=== PATIENT | male | born 1935 | race Caucasian/White ===

== ENCOUNTER 2020-04-20 11:13 | Day surgery (SDC) | payer MEDICARE, BC ==
[2020-04-15 12:58] LABS: BASOPHILS # (AUTO) 0.1 X10'3 (0-0.2); BASOPHILS % (AUTO) 1.1 % (0-1); EOSINOPHILS # (AUTO) 0.2 X10'3 (0-0.9); EOSINOPHILS % (AUTO) 4.2 % (0-6); HEMATOCRIT 44.2 % (42.0-52.0); HEMOGLOBIN 14.7 g/dl (14.0-17.9); LYMPHOCYTES # (AUTO) 2.6 X10'3 (1.1-4.8); LYMPHOCYTES % (AUTO) 43.2 % (21-51); MEAN CORPUSCULAR HEMOGLOBIN 30.9 PG (27.0-31.0); MEAN CORPUSCULAR HGB CONC 33.2 g/dL (33.0-36.5); MEAN CORPUSCULAR VOLUME 93.1 FL (78-98); MEAN PLATELET VOLUME 7.4 FL (7.4-10.4); MONOCYTES # (AUTO) 0.7 X10'3 (0-0.9); MONOCYTES % (AUTO) 11.7 % (2-12); NEUTROPHILS # (AUTO) 2.4 X10'3 (1.8-7.7); NEUTROPHILS % (AUTO) 39.8 % (42-75); PLATELET COUNT 199 X10'3 (140-440); RED BLOOD COUNT 4.75 X10'6 (4.70-6.10); RED CELL DISTRIBUTION WIDTH 13.8 % (11.5-14.5); WHITE BLOOD COUNT 5.9 X10'3 (4.5-11.0)
[2020-04-15 13:09] LABS: ALBUMIN 3.9 G/DL (3.4-5.0); ANION GAP 8 (8-16); BLOOD UREA NITROGEN 15 MG/DL (7-18); BUN/CREATININE RATIO 13.6 (5.4-32.0); CALCIUM 9.3 MG/DL (8.5-10.1); CHLORIDE 105 MMOL/L (99-107); GLUCOSE 92 MG/DL (70-104); SODIUM 142 MMOL/L (135-145); TOTAL CARBON DIOXIDE 29.1 MMOL/L (24-32); eGFR 64 ML/MIN
[2020-04-15 13:11] LABS: PARTIAL THROMBOPLASTIN TIME 27 SECONDS (22-32)
[~2020-04-20] VITALS: Ht 182.9 cm; Wt 107.0 kg
[2020-04-20] VITALS (10 sets, daily range): BP systolic 104–162; BP diastolic 66–86
[2020-04-20] MEDS ORDERED: normal saline 1,000 ML IV SCH (11:50)
[2020-04-20] MEDS ORDERED: LORazepam 0.5 MG tablet PO PRN (11:50)
[2020-04-20] MEDS ORDERED: LIDOcaine/PRILOcaine 5gm cream TP ONE (11:50)
[2020-04-20] MEDS ORDERED: diphenhydrAMINE 25mg capsule PO PRN (11:50)
[2020-04-20] MEDS ORDERED: iohexol 350MG/ML 100ml bottle IV ONE ×2 (12:34→13:39)
[2020-04-20] MEDS ORDERED: LIDOcaine 1% (10mg/ml)w/preservative injection 20ml MDV ONE (12:34)
[2020-04-20] MEDS ORDERED: fentaNYL/PF 50MCG/1 ML 2ML syringe ONE (12:35)
[2020-04-20] MEDS ORDERED: midazolam 2 mg/2 ml injection ONE ×2 (12:35→13:18)
[2020-04-20] MEDS ORDERED: ATOR20TA PO (12:49)
[2020-04-20] MEDS ORDERED: ASPI81TA52 PO (12:50)
[2020-04-20] MEDS ORDERED: CARV3.12 PO (12:50)
[2020-04-20] MEDS ORDERED: proCHLORperazine 10 MG/2 ml inj ONE (12:58)
[2020-04-20] MEDS ORDERED: heparin 1,000unit/ml 10ml vial 10 ML ONE (13:00)
[2020-04-20] MEDS ORDERED: nitroGLYCERIN-Tridil 50MG/D5W 250 ML IV ONE (13:00)
[2020-04-20] MEDS ORDERED: verapamil 2.5 mg/ml inj IV ONE (13:00)
[2020-04-20] MEDS ORDERED: ticagrelor 90mg tablet ONE (14:00)
[2020-04-20] MEDS ORDERED: proCHLORperazine 10 MG/2 ml inj IV PRN (14:35)
[2020-04-20] MEDS ORDERED: ondansetron/PF 4mg/2ml inj IV PRN (14:35)
[2020-04-20] MEDS ORDERED: normal saline 1000ml 1,000 ML IV SCH (14:35)
[2020-04-20] MEDS ORDERED: HYDROcodone/acetaminophen 10/325mg tab PO PRN (14:35)
[2020-04-20] MEDS ORDERED: HYDROcodone/acetaminophen 5mg/325mg tablet PO PRN (14:35)
[2020-04-20] MEDS ORDERED: OXAZEpam 15mg capsule PO PRN (14:35)
--- NOTE | 2020-04-20 16:15 | NUR ---
HEMATOMA DEVELOPING AT SITE VASCULAR BAND REPLACED 15CC OF AIR IN BAND, PRESSURE HELD ON HEMATOMA, PT ANURADHA WELL, DENIED DISCOMFORT.
--- NOTE | 2020-04-20 16:22 | NUR ---
VASCULAR BAND REMOVED, STERILE DRSG APPLIED 2X2 AND TEGADERM, TOPPED WITH FOLDED 4X4 AND COFLEX, PT UNDERSTANDS THAT TOP BY BE ADJUSTED AND OR REMOVED FOR COMFORT. TEGADERM TO BE REMOVED PRIOR TO SHOWER NO SOONER THAN 24 HOURS. PT STATES UNDERSTANDING. Addendum: 04/20/20 at 1729 by Rhonda Rubi RN above vascular band removal noted on wrong pt. to be disregarded
--- NOTE | 2020-04-20 18:00 | NUR ---
VASCULAR BAND REMOVED, HEMATOMA DECREASED FROM ORIGINAL SIZE, BRUISING NOTED, STERILE 2X2 AND TEGADERM APPLIED, TOPPED WITH FOLDED 4X4 AND COFLEX, PT AMBULATED IN [place], ANURADHA WELL DENIED DIZZINESS. RIGHT GROIN PROCEDURE SITE REMAINED STABLE.
== END 2020-04-20 18:30 | disposition home or self-care (01) ==
LOC: SSTAY O 11:13
PROVIDERS: ATTEND Internal Medicine Interventional Cardiology
DX: R94.39 Abnormal result of other cardiovascular function study (principal); I25.10 Atherosclerotic heart disease of native coronary artery without angina pectoris; I35.0 Nonrheumatic aortic (valve) stenosis; Z79.899 Other long term (current) drug therapy; Z98.890 Other specified postprocedural states; Z72.89 Other problems related to lifestyle; Z85.828 Personal history of other malignant neoplasm of skin; Z79.01 Long term (current) use of anticoagulants; Z82.49 Family history of ischemic heart disease and other diseases of the circulatory system
CPT/HCPCS: 36415; 80048; 85025; 85610; 85730; 93005; 93458; 99152; 99153; C1725; C1751; C1760; C1769; C1876; C1894; C9600; J0780; J1644; J2001; J2250; J3010; Q9967; A4620; A5120; A6258; J3490

== ENCOUNTER 2020-05-26 08:10 | Day surgery (SDC) | payer MEDICARE, BC ==
[2020-05-20 13:21] LABS: BASOPHILS # (AUTO) 0.1 X10'3 (0-0.2); BASOPHILS % (AUTO) 1.1 % (0-1); EOSINOPHILS # (AUTO) 0.3 X10'3 (0-0.9); EOSINOPHILS % (AUTO) 6.1 % (0-6); LYMPHOCYTES # (AUTO) 2.2 X10'3 (1.1-4.8); MEAN CORPUSCULAR HGB CONC 33.6 g/dL (33.0-36.5); MEAN CORPUSCULAR VOLUME 92.3 FL (78-98); MEAN PLATELET VOLUME 7.6 FL (7.4-10.4); MONOCYTES # (AUTO) 0.7 X10'3 (0-0.9); MONOCYTES % (AUTO) 12.7 % (2-12); NEUTROPHILS # (AUTO) 2.2 X10'3 (1.8-7.7); NEUTROPHILS % (AUTO) 40.1 % (42-75); PRE OP HEMATOCRIT 43.6 % (42.0-52.0); PRE OP HEMOGLOBIN 14.7 g/dL (14.0-17.9); PRE OP PLATELET COUNT 184 X10'3 (140-440); RED BLOOD COUNT 4.73 X10'6 (4.70-6.10); RED CELL DISTRIBUTION WIDTH 13.1 % (11.5-14.5)
[2020-05-20 13:31] LABS: PRE OP INR 1.1 INR
[2020-05-20 13:34] LABS: ALBUMIN/GLOBULIN RATIO 1.1 (1.1-1.5); ALKALINE PHOSPHATASE 53 IU/L (46-116); BLOOD UREA NITROGEN 16 MG/DL (7-18); CALCIUM 9.2 MG/DL (8.5-10.1); CHLORIDE 104 MMOL/L (99-107); CREATININE 0.94 MG/DL (0.60-1.10); PRE OP ALT 32 U/L (30-65); PRE OP ANION GAP 8 (8-16); PRE OP AST 20 U/L (10-37); PRE OP BILIRUB, TOTAL 0.5 MG/DL (0.0-1.0); PRE OP GLUCOSE 90 MG/DL (70-104); PRE OP POTASSIUM 4.1 MMOL/L (3.4-5.1); PRE OP SODIUM 140 MMOL/L (135-145); TOTAL CARBON DIOXIDE 27.8 MMOL/L (24-32); TOTAL PROTEIN 7.6 G/DL (6.4-8.2); eGFR 77 ML/MIN
[2020-05-26] VITALS (20 sets, daily range): BP systolic 127–172; BP diastolic 60–108
[~2020-05-26] VITALS: Ht 182.9 cm; Wt 108.0 kg
[~2020-05-26 08:10] MED LIST: ASPI81TA52 PO; ATOR20TA PO; CARV3.12 PO; DOCUMENT DATE & TIME OF BETA-BLOCKER PO ONE; TICA90TA PO; TRANEXAMIC ACID 1 GM IN NACL,ISO-OS 100 ML IV ONE; ceFAZolin 2gm in dextrose, iso 50 ML IV ONE; famotidine 20mg tablet PO ONE; ringers solution, lacted 1,000 ML IV SCH; vancomycin 1,500 MG in NS 300ml IV soln IV ONE
[2020-05-26] MEDS ORDERED: ceFAZolin inj. 3,000 MG in sodium chloride irrig. sol 3,000 ML IR ONE (09:15)
[2020-05-26] MEDS ORDERED: vancomycin 1,000mg inj ONE (10:42)
[2020-05-26] MEDS ORDERED: Thrombin (Bovine) 5,000 unit vial TP ONE (10:57)
[2020-05-26] MEDS ORDERED: sevoflurane 250ml liquid IH ONE (11:25)
[2020-05-26] MEDS ORDERED: fentaNYL /PF 50mcg/ml 5ml ampule ONE (11:27)
[2020-05-26] MEDS ORDERED: rocuronium 10mg/ml inj IV ONE (11:46)
[2020-05-26] MEDS ORDERED: LIDOcaine 2% (20mg/ml) 5ml vial ONE (11:46)
[2020-05-26] MEDS ORDERED: propofol inj 20 ML IV ONE (11:46)
[2020-05-26] MEDS ORDERED: ROPIVAcaine inj 200 MG, ketorolac trometh inj. 30 MG, epiNEPHrine inj 0.6 MG, morphine ... IU ONE ×5 (12:00)
[2020-05-26] MEDS ORDERED: ketorolac trometh. 30mg/ml inj. ONE (12:43)
[2020-05-26] MEDS ORDERED: morphine 10mg/ml inj. ONE (12:43)
[2020-05-26] MEDS ORDERED: ROPIVAcaine 0.5% (5mg/ml) 30ml vial ONE ×2 (12:43→13:09)
[2020-05-26] MEDS ORDERED: epiNEPHrine 1 mg/ml inj ONE (12:43)
[2020-05-26] MEDS ORDERED: ondansetron/PF 4mg/2ml inj IV PRN ×2 (12:45→14:10)
[2020-05-26] MEDS ORDERED: ROPIVAcaine 0.2% (10 MG/5 ML) BOLUS INJECTION ADDCANAL PRN (12:45)
[2020-05-26] MEDS ORDERED: ringers solution, lacted 1,000 ML IV SCH (12:45)
[2020-05-26] MEDS ORDERED: morphine 2 MG/ML inj. syringe IV PRN (12:45)
[2020-05-26] MEDS ORDERED: acetaminophen 1,000mg/100ml IV 100 ML IV ONE (13:09)
[2020-05-26] MEDS ORDERED: neostigmine methylsulfate 1 MG/ML 10ml vial ONE (13:09)
[2020-05-26] MEDS ORDERED: glycopyrrolate 0.2mg/ml inj ONE (13:09)
[2020-05-26] MEDS ORDERED: dexamethasone sod phosphate 4mg/ml inj. ONE (13:09)
[2020-05-26] MEDS ORDERED: ondansetron/PF 4mg/2ml inj ONE (13:09)
[2020-05-26] MEDS ORDERED: diphenhydrAMINE 25mg capsule PO PRN ×2 (14:10)
[2020-05-26] MEDS ORDERED: acetaminophen 325mg tablet PO PRN (14:10)
[2020-05-26] MEDS ORDERED: HYDROmorphone 1 mg/ml syringe IV PRN (14:10)
[2020-05-26] MEDS ORDERED: oxyCODONE IR 5mg (immed. release) tablet PO PRN ×2 (14:10)
[2020-05-26] MEDS ORDERED: HYDROmorphone inj. 0.5 MG/0.5 ML DISP.SYRIN IV PRN (14:10)
[2020-05-26] MEDS ORDERED: bisacodyl 10mg suppository rectal RC PRN (14:10)
[2020-05-26] MEDS ORDERED: magnesium hydroxide 30ml (MOM) UD suspension PO PRN (14:10)
--- NOTE | 2020-05-26 14:30 | NUR ---
Received from OR via BED , accompanied by Anesthesiologist DR JAIMES and report given by Anesthesiolgist. PATIENT WAKING UP, DENIES PAIN, V/S WNL, NEUROVASCULAR CHECKS INTACT, 20G PIV LUE , DRESSING TO LEFT KNEE CDI W/ COLD POWDER PACK AND ON QUE PUMP AT 4ML/HR ,
[2020-05-26] MEDS: ROPIVAcaine 0.2%/PF PUMP/bolus 550 ML ADDCANAL SCH (14:51)
[2020-05-26] MEDS: HYDROmorphone/PF 0.2 MG/ML SYRINGE IV PRN ×2 (14:57→15:17)
[2020-05-26] MEDS: morphine 4 MG/ML inj SYRINge IV PRN ×2 (15:31→15:38)
--- NOTE | 2020-05-26 15:40 | NUR ---
I have received report from WESLEY LOPEZ IN [facility] and had the opportunity to ask questions and assume patient care.
--- NOTE | 2020-05-26 15:50 | NUR ---
PATIENT A&OX4, C/O PAIN SEE EMAR, V/S WNL, NEUROVASCULAR CHECKS INTACT, 20G PIV LUE , DRESSING TO LEFT KNEE CDI W/ COLD POWDER PACK AND ON QUE PUMP AT 14ML/HR W/ MUKLTIPLE BOLUS GIVEN FOR PAIN CONTROL AND PATIENT CONTINOUS TO C/O OF PAIN INTERMITTENLY THAT HE SAYS IS TOLERABLE BUT HURTS STILL AND HE CONTINOUS TO WANT SOMETHING FOR IT WHICH HAS BEEN GIVEN MULTIPLE TIMES. PATIENT ON TELE TAKEN TO 4014A WITH ALL BELONGINGS AND HOOKED UP TO MONITORS IN ROOM AND REPORT GIVEN TO DIRECTOR OPERATING ROOM WHO HAS TAKEN OVER PATIENT CARE.
--- NOTE | 2020-05-26 16:00 | NUR ---
PT ARRIVED ON THE FLOOR IN PAIN, WESLEY BUNN WILL PROVIDE PN MED. WILL CONTINUE TO MONITOR.
[2020-05-26] MEDS: potassium cl 20mEq in 1/2 NS 1,000 ML IV SCH ×2 (16:56→22:10)
[2020-05-26] MEDS: ceFAZolin/D5W- 1GM premix 50 ML IV SCH (16:58)
[2020-05-26] MEDS ORDERED: tranexamic acid inj. 1,080 MG in normal saline 100ml IV soln 100 ML IV ONE (17:30)
--- NOTE | 2020-05-26 18:33 | NUR ---
Problems reprioritized. Patient report given, questions answered & plan of care reviewed with Kee RN.
--- NOTE | 2020-05-26 18:42 | NUR ---
ORIENTEE documentation: I have reviewed and agree with all interventions, assessments performed and documented by WESLEY BUNN.
[2020-05-26] MEDS ORDERED: metoclopramide 5 mg/ml inj IV PRN (19:40)
[2020-05-26] MEDS ORDERED: vancomycin/NS 1 GM ADD-VANTAGE 250 ML IV SCH (20:00)
[2020-05-26] MEDS ORDERED: sennosides 8.6mg tablet PO SCH (21:00)
[2020-05-26] MEDS: acetaminophen 325mg tablet PO SCH (21:09)
[2020-05-26] MEDS: ticagrelor 90mg tablet PO SCH (21:09)
[2020-05-26] MEDS: carVEDilol 3.125mg tablet PO SCH (21:09)
[2020-05-26] MEDS: gabapentin 300mg capsule PO SCH (21:09)
[2020-05-27] MEDS: ceFAZolin/D5W- 1GM premix 50 ML IV SCH (00:24)
[2020-05-27 01:56] VITALS: BP 127/57
[2020-05-27] MEDS: acetaminophen 325mg tablet PO SCH ×3 (02:15→14:00)
[2020-05-27 06:06] VITALS: BP 128/63
[2020-05-27] MEDS: potassium cl 20mEq in 1/2 NS 1,000 ML IV SCH ×2 (06:10→14:10)
[2020-05-27] MEDS ORDERED: enoxaparin 40mg/0.4ml syringe SQ SCH (08:00)
[2020-05-27] MEDS ORDERED: atorvastatin 20mg tablet PO SCH (08:00)
[2020-05-27] MEDS: ticagrelor 90mg tablet PO SCH (08:11)
[2020-05-27] MEDS: carVEDilol 3.125mg tablet PO SCH (08:11)
[2020-05-27] MEDS: gabapentin 300mg capsule PO SCH ×2 (08:11→13:54)
[2020-05-27 10:10] VITALS: BP 131/57
--- NOTE | 2020-05-27 10:34 | NUR ---
Joint Replacement Consult: Pt s/p L knee surgery and seen by RD for written/verbal high protein ed w/ RD contact information provided. Pt reports drinks one ensure daily at home and is agreeable to Ajay jimmy PARRY for wound healing post-op; notified. To provide full initial assessment on above date. Addendum: 05/27/20 at [address] Amended: Links added.
[2020-05-27] MEDS ORDERED: JUVEN Smoothie Arginine/Glut./Ca2+Bmb (Juven 19.3pkt) 240ml cup PO SCH (12:30)
[2020-05-27] MEDS: ROPIVAcaine 0.2%/PF PUMP/bolus 550 ML ADDCANAL SCH (14:22)
[2020-05-27] MEDS ORDERED: celeCOXIB 100mg capsule PO SCH (20:00)
[2020-05-28] MEDS ORDERED: acetaminophen 325mg tablet PO PRN (14:10)
== END 2020-05-27 14:35 | disposition home or self-care (01) ==
LOC: PRE-OP 08:10 → ORTHO 4S 16:46 → PAS 05-27 14:35
PROVIDERS: ATTEND Orthopaedic Surgery
DX: M17.12 Unilateral primary osteoarthritis, left knee (principal); I25.10 Atherosclerotic heart disease of native coronary artery without angina pectoris; G89.18 Other acute postprocedural pain; Z95.5 Presence of coronary angioplasty implant and graft; Z79.82 Long term (current) use of aspirin; Z72.89 Other problems related to lifestyle; Z79.899 Other long term (current) drug therapy; Z20.822 Contact with and (suspected) exposure to COVID-19; Z79.01 Long term (current) use of anticoagulants
CPT/HCPCS: 27446; 36415; 64448; 76937; 80053; 82948; 85025; 85610; 85730; 87081; 87635; 97110; 97116; 97161; A6454; C1713; C1776; J0131; J0171; J0690; J1100; J1170; J1885; J2001; J2270; J2405; J2704; J2710; J2765; J2795; J3010; J3370; J7040; Q0163; A4215; A6258; A7000; G0378; J1650; J3480; J3490; J7120

== ENCOUNTER 2021-11-29 12:16 | Day surgery (SDC) | payer MEDICARE, BC ==
[2021-11-24 09:03] LABS: BASOPHILS # (AUTO) 0.1 X10'3 (0-0.2); EOSINOPHILS # (AUTO) 0.3 X10'3 (0-0.9); EOSINOPHILS % (AUTO) 5.9 % (0-6); HEMATOCRIT 42.6 % (42.0-52.0); HEMOGLOBIN 14.5 g/dl (14.0-17.9); LYMPHOCYTES # (AUTO) 2.4 X10'3 (1.1-4.8); LYMPHOCYTES % (AUTO) 41.4 % (21-51); MEAN CORPUSCULAR HEMOGLOBIN 30.5 PG (27.0-31.0); MEAN CORPUSCULAR HGB CONC 33.9 g/dL (33.0-36.5); MEAN CORPUSCULAR VOLUME 89.8 FL (78-98); MEAN PLATELET VOLUME 6.8 FL (7.4-10.4); MONOCYTES # (AUTO) 0.7 X10'3 (0-0.9); MONOCYTES % (AUTO) 11.8 % (2-12); NEUTROPHILS # (AUTO) 2.3 X10'3 (1.8-7.7); NEUTROPHILS % (AUTO) 39.9 % (42-75); PLATELET COUNT 158 X10'3 (140-440); RED BLOOD COUNT 4.75 X10'6 (4.70-6.10); RED CELL DISTRIBUTION WIDTH 13.7 % (11.5-14.5); WHITE BLOOD COUNT 5.7 X10'3 (4.5-11.0)
[2021-11-24 09:13] LABS: APTT 29 SECONDS (22-32)
[2021-11-24 09:15] LABS: ALBUMIN 3.9 G/DL (3.4-5.0); ANION GAP 6 (8-16); BLOOD UREA NITROGEN 16 MG/DL (7-18); BUN/CREATININE RATIO 17.6 (5.4-32.0); CHLORIDE 102 MMOL/L (99-107); CHOL/HDL RATIO 2.5 (0.00-4.99); CHOLESTEROL 127 MG/DL (0-200); CREATININE 0.91 MG/DL (0.60-1.10); GLUCOSE 105 MG/DL (70-104); HDL CHOLESTEROL 50 MG/DL (35-60); LDL CHOLESTEROL 56 MG/DL (50-100); POTASSIUM 4.5 MMOL/L (3.5-5.1); SODIUM 136 MMOL/L (135-145); TOTAL CARBON DIOXIDE 28.5 MMOL/L (24-32); TRIGLYCERIDES 135 MG/DL (20-135); eGFR 79 ML/MIN
[2021-11-29] VITALS (8 sets, daily range): BP systolic 137–162; BP diastolic 48–82
[~2021-11-29] VITALS: Ht 182.9 cm; Wt 111.4 kg
[~2021-11-29 12:16] MED LIST changes: -DOCUMENT DATE & TIME OF BETA-BLOCKER PO ONE; -TRANEXAMIC ACID 1 GM IN NACL,ISO-OS 100 ML IV ONE; -ceFAZolin 2gm in dextrose, iso 50 ML IV ONE; -famotidine 20mg tablet PO ONE; -ringers solution, lacted 1,000 ML IV SCH; -vancomycin 1,500 MG in NS 300ml IV soln IV ONE
[2021-11-29] MEDS ORDERED: normal saline 1,000 ML IV SCH (12:40)
[2021-11-29] MEDS ORDERED: LORazepam 0.5 MG tablet PO PRN (12:40)
[2021-11-29] MEDS ORDERED: diphenhydrAMINE 25mg capsule PO PRN (12:40)
[2021-11-29] MEDS ORDERED: LIDOcaine 1%/PF 5ML 10 MG/ML VIAL ONE (13:44)
[2021-11-29] MEDS ORDERED: midazolam 1 mg/ML 2ml injection ONE (13:44)
[2021-11-29] MEDS ORDERED: iohexol 350MG/ML 100ml bottle IV ONE (13:45)
[2021-11-29] MEDS ORDERED: fentaNYL/PF 50MCG/1 ML 2ML syringe ONE (13:45)
[2021-11-29 15:04] LABS: ISTAT HGB ART 12.9 g/dl (14.0-18.0); ISTAT Hct ART 38 %PCV (42-52); ISTAT O2 SATURATION ARTERIAL 90 % (95-98); ISTAT SOURCE ART
[2021-11-29 15:21] LABS: ISTAT Hct MIX 39 %PCV (42-52); ISTAT O2 SATURATION MIX VENOUS 60 % (60-80); ISTAT SOURCE OTHER
[2021-11-29] MEDS ORDERED: HYDROcodone/acetaminophen 10/325mg tab PO PRN (15:45)
[2021-11-29] MEDS ORDERED: HYDROcodone/acetaminophen 5mg/325mg tablet PO PRN (15:45)
== END 2021-11-29 17:45 | disposition home or self-care (01) ==
LOC: SSTAY O 12:16
PROVIDERS: ATTEND Student in an Organized Health Care Education/Training Program
DX: I25.10 Atherosclerotic heart disease of native coronary artery without angina pectoris (principal); I35.0 Nonrheumatic aortic (valve) stenosis; E78.5 Hyperlipidemia, unspecified; I10 Essential (primary) hypertension; Z79.01 Long term (current) use of anticoagulants; Z79.899 Other long term (current) drug therapy; Z98.890 Other specified postprocedural states
CPT/HCPCS: 36415; 80048; 80061; 82803; 85014; 85025; 85610; 85730; 93005; 93456; 99152; C1760; C1769; C1894; J1644; J2250; J3010; J3490; J7030; Q9967; 99153; A4620; A6258

== ENCOUNTER 2022-01-25 11:32 | Outpatient (CLI) | payer MEDICARE, BC ==
[~2022-01-25 11:32] MED LIST changes: -TICA90TA PO
[2022-01-25 12:38] LABS: BASOPHILS # (AUTO) 0.1 X10'3 (0-0.2); EOSINOPHILS # (AUTO) 0.3 X10'3 (0-0.9); EOSINOPHILS % (AUTO) 4.6 % (0-6); HEMOGLOBIN 14.8 g/dl (14.0-17.9); LYMPHOCYTES # (AUTO) 2.7 X10'3 (1.1-4.8); LYMPHOCYTES % (AUTO) 44.8 % (21-51); MEAN CORPUSCULAR HEMOGLOBIN 30.4 PG (27.0-31.0); MEAN CORPUSCULAR HGB CONC 33.7 g/dL (33.0-36.5); MEAN CORPUSCULAR VOLUME 90.1 FL (78-98); MEAN PLATELET VOLUME 7.4 FL (7.4-10.4); MONOCYTES # (AUTO) 0.7 X10'3 (0-0.9); MONOCYTES % (AUTO) 11.6 % (2-12); NEUTROPHILS # (AUTO) 2.3 X10'3 (1.8-7.7); PLATELET COUNT 162 X10'3 (140-440); RED BLOOD COUNT 4.88 X10'6 (4.70-6.10); RED CELL DISTRIBUTION WIDTH 13.5 % (11.5-14.5); WHITE BLOOD COUNT 6.1 X10'3 (4.5-11.0)
[2022-01-25 12:47] LABS: APTT 30 SECONDS (22-32)
[2022-01-25 12:54] LABS: ALANINE AMINOTRANSFERASE 29 U/L (12-78); ALBUMIN 4.1 G/DL (3.4-5.0); ALBUMIN/GLOBULIN RATIO 1.2 (1.1-1.5); ALKALINE PHOSPHATASE 56 IU/L (46-116); ANION GAP 7 (8-16); ASPARTATE AMINO TRANSFERASE 20 U/L (10-37); BILIRUBIN,TOTAL 0.7 MG/DL (0.1-1.0); BLOOD UREA NITROGEN 15 MG/DL (7-18); BUN/CREATININE RATIO 15.6 (5.4-32.0); CALCIUM 9.1 MG/DL (8.5-10.1); CHLORIDE 101 MMOL/L (99-107); CREATININE 0.96 MG/DL (0.60-1.10); GLUCOSE 97 MG/DL (70-104); POTASSIUM 4.1 MMOL/L (3.5-5.1); SODIUM 135 MMOL/L (135-145); TOTAL CARBON DIOXIDE 27.5 MMOL/L (24-32); TOTAL PROTEIN 7.4 G/DL (6.4-8.2); eGFR 75 ML/MIN
[2022-01-25] MEDS ORDERED: IODIXANOL 320 MG/ML INFUS..BTL 100ML IV ONE (13:03)
== END 2022-01-25 23:59 | disposition home or self-care (01) ==
LOC: RAD 11:32
PROVIDERS: ATTEND Internal Medicine Cardiovascular Disease
DX: I70.0 Atherosclerosis of aorta (principal); I51.7 Cardiomegaly; M47.814 Spondylosis without myelopathy or radiculopathy, thoracic region; I35.0 Nonrheumatic aortic (valve) stenosis; I65.29 Occlusion and stenosis of unspecified carotid artery; R06.02 Shortness of breath
CPT/HCPCS: 36415; 71046; 71275; 74174; 80053; 85025; 85610; 85730; 94010; 94727; 94729; J3490; Q9967